=== PATIENT | male | born 1965 | race Caucasian/White ===

== ENCOUNTER 2016-11-21 15:14 | Inpatient (IN) | payer OTHER ==
[2016-11-21] VITALS (11 sets, daily range): BP systolic 82–99; BP diastolic 51–65; PULSE 72–84; RESP 12–24; TEMP 97.3–97.9; O2SAT 99–100
[~2016-11-21] VITALS: Ht 172.7 cm; Wt 73.9 kg
--- NOTE | 2016-11-21 16:32 | RADRPT ---
EXAM DATE/TIME: 11/21/2016 15:45 [facility] COMPARISON: No previous studies available for comparison. INDICATIONS : Chest pain and shortness of breath. MEDICAL HISTORY : None. SURGICAL HISTORY : None. ENCOUNTER: Initial ACUITY: 1 day PAIN SCORE: 4/10 LOCATION: Left chest FINDINGS: The heart is normal in size. There chronic appearing interstitial changes within the pulmonary parenc hyma. The lungs are otherwise clear. The visualized bony structures are grossly intact. CONCLUSION: 1. Chronic appearing interstitial changes. No acute abnormality. Willie Shelley MD on November 21, 2016 at 16:30 Board Certified Radiologist. This report was verified electronically.
[2016-11-21] MEDS ORDERED: SODIUM CHLOR 0.9% 1000 ML INJ 1,000 ML IV ONE ×2 (17:00→22:45)
--- NOTE | 2016-11-21 17:16 | PD ---
HPI Chief Complaint: Chest Pain Time Seen by Provider: 16:55 Travel History International Travel<30 days: No Contact w/Intl Traveler<30days: No Traveled to known affect area: No History of Present Illness HPI 50-year-old male patient presents to the emergency department for evaluation of hypotension. Patient went to his doctor's appointment this morning for evaluation of his hiatal hernia that he would like to get repaired. During the routine vital signs taken at his physician's appointment it was noted that his blood pressure is extremely low in the 60s systolically. Patient was referred to the emergency department for evaluation. Patient has recently been treated for sepsis and pneumonia. When patient was treated for pneumonia he was admitted to the hospital and intensive care on a ventilator in July of this year. Patient states he is treated for hypertension and takes antihypertensives daily but cannot remember the name of the medications at this time. He did take his medications this morning. Patient has noticed that within the last week he has become lightheaded when standing too quickly. Patient states last week he had abdominal pain, nausea and vomiting. Patient is nauseated at this time but denies any vomiting. Patient states he intermittently gets cramping in his legs and his abdomen. Patient has COPD and is is on continuous oxygen at 2 L. Patient states he has a dry cough that worsens when he is laying down. PFSH Past Medical History Anxiety: Yes Depression: Yes Heart Rhythm Problems: Yes Cancer: Yes (SKIN CA) Cardiovascular Problems: Yes COPD: Yes Diminished Hearing: Yes Gastrointestinal Disorders: Yes (GASTROPARESIS) GERD: Yes Hypertension: Yes Medical other: Yes Respiratory: Yes (COPD) Pneumonia: Yes Past Surgical History Tonsillectomy: Yes Social History Alcohol Use: No Tobacco Use: No Substance Use: No Allergies-Medications (Allergen,Severity, Reaction): Coded Allergies: No Known Allergies (Unverified , 11/21/16) Review of Systems Except as stated in HPI: all other systems reviewed are Neg Physical Exam Narrative GENERAL: Well-nourished and well developed 50-year-old male in no acute distress. Alert and oriented 3. SKIN: Focused skin assessment warm/dry. HEAD: Atraumatic. Normocephalic. EYES: Pupils equal and round. No scleral icterus. No injection or drainage. ENT: No nasal bleeding or discharge. Mucous membranes pink and moist. NECK: Trachea midline. No JVD. CARDIOVASCULAR: Regular rate and rhythm. No murmur appreciated. RESPIRATORY: No accessory muscle use. Breath sounds equal bilaterally. Course in the bases bilaterally. GASTROINTESTINAL: Abdomen round, soft, tender. Hepatic and splenic margins not palpable. MUSCULOSKELETAL: No obvious deformities. No clubbing. No cyanosis. No edema. NEUROLOGICAL: Awake and alert. No obvious cranial nerve deficits. Motor grossly within normal limits. Normal speech. PSYCHIATRIC: Appropriate mood and affect; insight and judgment normal. Data Data Last Documented VS Vital Signs Date Time Temp Pulse Resp B/P (MAP) Pulse Ox O2 Delivery O2 Flow Rate FiO2 11/21/16 20:00 79 18 89/56 (67) Nasal Cannula 2.00 11/21/16 19:30 100 11/21/16 15:18 97.9 Orders Orders Electrocardiogram (11/21/16 15:33) Complete Blood Count With Diff (11/21/16 15:33) Basic Metabolic Panel (Bmp) (11/21/16 15:33) Ckmb (Isoenzyme) Profile (11/21/16 15:33) Troponin I (11/21/16 15:33) Iv Access Insert/Monitor (11/21/16 15:33) Ecg Monitoring (11/21/16 15:33) Oxygen Administration (11/21/16 15:33) Oximetry (11/21/16 15:33) Chest, Pa & Lat (11/21/16 15:33) Hepatic Functional Panel (11/21/16 16:55) Lipase (11/21/16 16:55) Sodium Chlor 0.9% 1000 Ml Inj (Ns 1000 M (11/21/16 17:00) Lactic Acid (11/21/16 16:55) Ct Abd/Pel W/O Iv Contrast (11/21/16 18:06) Blood Culture (11/21/16 18:16) Piperacil-Tazo 2.25 Gm Premix (Zosyn 2.2 (11/21/16 18:30) Lactic Acid (11/21/16 20:04) Acetaminophen (Tylenol) (11/21/16 20:15) Admit Order (Ed Use Only) (11/21/16 20:50) Labs Laboratory Tests Test 11/21/16 16:25 11/21/16 17:25 11/21/16 20:18 White Blood Count 16.3 TH/MM3 Red Blood Count 5.61 MIL/MM3 Hemoglobin 13.0 GM/DL Hematocrit 42.9 % Mean Corpuscular Volume 76.5 FL Mean Corpuscular Hemoglobin 23.1 PG Mean Corpuscular Hemoglobin Concent 30.3 % Red Cell Distribution Width 19.6 % Platelet Count 324 TH/MM3 Mean Platelet Volume 10.7 FL Neutrophils (%) (Auto) 89.4 % Lymphocytes (%) (Auto) 7.5 % Monocytes (%) (Auto) 2.8 % Eosinophils (%) (Auto) 0.1 % Basophils (%) (Auto) 0.2 % Neutrophils # (Auto) 14.6 TH/MM3 Lymphocytes # (Auto) 1.2 TH/MM3 Monocytes # (Auto) 0.5 TH/MM3 Eosinophils # (Auto) 0.0 TH/MM3 Basophils # (Auto) 0.0 TH/MM3 CBC Comment DIFF FINAL Differential Comment Blood Urea Nitrogen 23 MG/DL Creatinine 2.14 MG/DL Random Glucose 102 MG/DL Calcium Level 9.2 MG/DL Sodium Level 137 MEQ/L Potassium Level 3.5 MEQ/L Chloride Level 98 MEQ/L Carbon Dioxide Level 29.1 MEQ/L Anion Gap 10 MEQ/L Estimat Glomerular Filtration Rate 33 ML/MIN Total Creatine Kinase 27 U/L Troponin I LESS THAN 0.02 NG/ML Lactic Acid Level 2.9 mmol/L Total Bilirubin 1.3 MG/DL Direct Bilirubin 0.2 MG/DL Indirect Bilirubin 1.1 MG/DL Aspartate Amino Transf (AST/SGOT) 11 U/L Alanine Aminotransferase (ALT/SGPT) 19 U/L Alkaline Phosphatase 60 U/L Total Protein 7.4 GM/DL Albumin 3.8 GM/DL Lipase 361 U/L [facility] Medical Decision Making Medical Screen Exam Complete: Yes Emergency Medical Condition: Yes Medical Record Reviewed: Yes Interpretation(s) Hypotensive, afebrile, no tachycardia Differential Diagnosis Differential diagnoses include but are not limited to sepsis, dehydration, hypotension, electrolyte abnormality Narrative Course 50-year-old male patient presents emergency department for evaluation of hypotension that was found during routine vital signs at his physician's office. Patient is treated for hypertension and has taken his hypertensive medications today. Patient states he is nauseous currently; last week he had abdominal pain, nausea or vomiting. Patient was recently treated for sepsis and pneumonia. Patient was treated for pneumonia he was admitted to the hospital with a ventilator. Patient states he had a fever a couple days ago at home. Patient states he has been feeling dizzy for approximately one week when he stands up. EKG, CBC, BMP, troponin, CK, hepatic function panel, lipase, lactic acid, chest x-ray, CT of abdomen with contrast ordered and pending. Patient is unsure of his current medication regimen. Patient believes he is on a water pill and being treated for hypertension but he does not know his current medications. Multiple attempts have been made to obtain his current records from [facility] but we have not gotten any records yet. EKG shows sinus rhythm with short AK interval heart rate 77 CBC shows leukocytosis at 16.3 BMP shows no acute abnormalities TROP less than 0.02 CK is 27 HEPATIC FUNCTION PANEL elevated total bilirubin at 1.3 LIPASE within normal limits at 361 LACTIC ACID elevated at 2.9 CXR shows chronic-appearing interstitial changes. No acute abnormality. CT OF ABD shows streaky infiltrate of both lung bases, mostly the left lower lung and indeterminate cystic structure within the spleen Patient will be treated empirically for sepsis based on abdominal source due to abdominal tenderness upon palpation with Zosyn 2.25 IV. Patient will be admitted to the hospital for further evaluation. Based on patient's symptoms, clinical appearance, vital sign review, lab results , imaging results it is clinically necessary to keep the patient in the hospital to further evaluate and treat his underlying condition. Patient will be admitted. [facility] paged for admission. Dr. Puga accepted admission. Sepsis Criteria Severe Sepsis (+one): Hypotension, Lactate >2 Diagnosis Primary Impression: Sepsis Qualified Codes: A41.9 - Sepsis, unspecified organism Additional Impression: Hypotension Qualified Codes: I95.9 - Hypotension, unspecified Admitting Information Admitting Physician Requests: Admit Umm Watson Nov 21, 2016 17:16
[2016-11-21 17:50] LABS: AUTOMATED NEUTROPHIL # 14.6 TH/MM3 (1.8-7.7); BASOPHIL % 0.2 % (0.0-2.0); EOSINOPHIL % 0.1 % (0.0-4.0); HEMATOCRIT 42.9 % (39.0-51.0); HEMO FLAGS DIFF FINAL; LYMPH % 7.5 % (9.0-44.0); LYMPHOCYTE # 1.2 TH/MM3 (1.0-4.8); MEAN CELL VOLUME 76.5 FL (80.0-100.0); MEAN CORPUSCULAR HEMOGLOBIN 23.1 PG (27.0-34.0); MEAN CORPUSCULAR HGB CONC 30.3 % (32.0-36.0); MONO % 2.8 % (0.0-8.0); NEUT % 89.4 % (16.0-70.0); PLATELET COUNT 324 TH/MM3 (150-450); RED BLOOD COUNT 5.61 MIL/MM3 (4.50-5.90); RED CELL DISTRIBUTION WIDTH 19.6 % (11.6-17.2); WHITE BLOOD COUNT 16.3 TH/MM3 (4.0-11.0)
[2016-11-21 18:00] LABS: ANION GAP 10 MEQ/L (5-15); BICARBONATE 29.1 MEQ/L (21.0-32.0); BLOOD UREA NITROGEN 23 MG/DL (7-18); CHLORIDE 98 MEQ/L (98-107); GLOMERULAR FILTRATION RATE 33 ML/MIN (>89); POTASSIUM 3.5 MEQ/L (3.5-5.1); SODIUM (NA) 137 MEQ/L (136-145)
[2016-11-21 18:03] LABS: INDIRECT BILIRUBIN 1.1 MG/DL (0.0-0.8); TOTAL BILIRUBIN ADULT 1.3 MG/DL (0.2-1.0)
[2016-11-21 18:10] LABS: CREATINE KINASE 27 U/L (39-308)
[2016-11-21] MEDS ORDERED: PIPERACIL-TAZO 2.25 GM PREMIX 50 ML IV ONE (18:30)
--- NOTE | 2016-11-21 19:10 | RADRPT ---
EXAM DATE/TIME: 11/21/2016 18:34 [facility] COMPARISON: No previous studies available for comparison. INDICATIONS : Low blood count intermittent chest pain. ORAL CONTRAST: No oral contrast ingested. RADIATION DOSE: 6.38 CTDIvol (mGy) MEDICAL HISTORY : Cardiovascular disease. Hypertension. Chronic obstructive pulmonary disease. SURGICAL HISTORY : None. ENCOUNTER: Initial ACUITY: 1 day PAIN SCALE: 6/10 LOCATION: Abdomen TECHNIQUE: Volumetric scanning of the abdomen and pelvis was performed. Using automated exposure control and ad justment of the mA and/or kV according to patient size, radiation dose was kept as low as reasonably achievable to obtain optimal diagnostic quality images. DICOM format image data is available electro nically for review and comparison. FINDINGS: LOWER LUNGS: Mild streaky infiltrate seen in the visualized lower lobes, left worse than right. There is biventric ular enlargement of the heart. A small hiatal hernia is present. LIVER: Homogeneous density without lesion. There is no dilation of the biliary tree. No calcified gallston es. SPLEEN: 5.6 cm cystic structure seen in the upper, medial spleen. PANCREAS: Within normal limits. KIDNEYS: Normal in size and shape. There is no mass, stone, or hydronephrosis. ADRENAL GLANDS: Within normal limits. VASCULAR: There is no aortic aneurysm. BOWEL/MESENTERY: The stomach, small bowel, and colon demonstrate no acute abnormality. There is no free intraperitone al air or fluid. ABDOMINAL WALL: Within normal limits. RETROPERITONEUM: There is no lymphadenopathy. BLADDER: No wall thickening or mass. REPRODUCTIVE: Within normal limits. INGUINAL: There is no lymphadenopathy or hernia. MUSCULOSKELETAL: No acute bony abnormality demonstrated. Chronic appearing ankylosis and subchondral sclerosis seen of both sacroiliac joints typical of chronic sacroiliitis. CONCLUSION: 1. Streaky infiltrate of both lung bases, mostly the left lower lobe. 2. Indeterminate cystic structure within the spleen. Ben Connor MD on November 21, 2016 at 19:06 Board Certified Radiologist. This report was verified electronically.
[2016-11-21] MEDS ORDERED: ACETAMINOPHEN 325 MG TAB PO ONE (20:15)
--- NOTE | 2016-11-21 21:39 | HHI.HP ---
HPI Service [facility] Primary Care Physician Emilia Frankel D.O. Admission Diagnosis sepsis, hypotension Chief Complaint: Low blood pressure, cough, sent directly from surgeon's office due to symptomatic low blood pressure Travel History International Travel<30 Days: No Contact w/Intl Traveler <30 Da: No Traveled to Known Affected Are: No Sepsis Criteria SIRS Criteria (2 or more): RR > 20 or PaCO2 < 32, WBC > 52312, < 4000 or > 10 % bands Sepsis Criteria (SIRS+source): Infect source susp/known Severe Sepsis (+one): Hypotension, Lactate >2 Criteria Outcome: Meets severe sepsis criteria History of Present Illness 50-year-old male patient with history of gastroparesis, ankylosing spondylitis and recurrent pneumonia reportedly due to aspiration presents to the emergency department for evaluation of hypotension. Patient went to his general surgeon' s appointment this morning for evaluation of his hiatal hernia and reflux that he would like to get repaired. During the routine vital signs taken at his physician's appointment it was noted that his blood pressure is extremely low in the 60s/40s. This was confirmed on several measurements and patient was symptomatic with orthostatic lightheadedness. Patient was referred to the emergency department for evaluation. Patient has recently been treated for sepsis and pneumonia. When patient was treated for pneumonia he was admitted to a neighboring hospital and intensive care unit on a ventilator in July of this year. Patient states he is treated for hypertension and takes antihypertensives daily. He did take his medications this morning. Patient has noticed that within the last week he has become lightheaded when standing too quickly. Patient states last week he had abdominal pain, nausea and vomiting. Patient is nauseated at this time but denies any vomiting in the last few days. Patient states he intermittently gets cramping in his legs and his abdomen. Patient has COPD. Patient states he has a dry cough that worsens when he is laying down. He has been given 1 L of IV fluids thus far his blood pressure now in the 80s over 60s. He is actually eating in the bed when I come in the room to examine him. He states that he has been increasingly weak over the last few days and has felt tired and lightheaded without much energy. He said a sharp pain in the left lower chest at times says it is usually associated with him trying to take a deep breath. He has had abdominal pain and has been coughing up more phlegm the last few days. He reports he said approximately 10 episodes of pneumonia in the last 15 months which he ascribes to recurrent aspiration. He has been to [facility] for evaluation regarding his gastroparesis and also has seen infectious disease regarding his recurrent pneumonias locally and at tertiary care center. Complicating his case is the fact that he has underlying ankylosing spondylitis as well as Crohn's disease and is on medications that suppress his immune system. Review of Systems Constitutional: COMPLAINS OF: Diaphoretic episodes, Fatigue, Weight loss, Chills, Dizziness, Change in appetite Endocrine: DENIES: Heat/cold intolerance, Polydipsia, Polyuria, Polyphagia Eyes: DENIES: Blurred vision, Diplopia, Eye inflammation, Eye pain, Vision loss , Photosensitivity, Double Vision Ears, nose, mouth, throat: DENIES: Tinnitus, Hearing loss, Vertigo, Nasal discharge, Oral lesions, Throat pain, Hoarseness, Ear Pain, Running Nose, Epistaxis, Sinus Pain, Toothache, Odynophagia Respiratory: COMPLAINS OF: Cough, Sputum production, Shortness of breath, DENIES: Apneas, Snoring, Wheezing, Hemoptysis Cardiovascular: COMPLAINS OF: Chest pain, Dyspnea on Exertion, DENIES: Palpitations, Syncope, PND, Lower Extremity Edema, Orthopnea, Claudication Gastrointestinal: COMPLAINS OF: Abdominal pain, GERD, Nausea, Reflux, DENIES: Black stools, Bloody stools, BRB per rectum, Constipation, Diarrhea, Vomiting, Difficulty Swallowing, Anorexia, See HPI Musculoskeletal: COMPLAINS OF: Joint pain, Back pain Integumentary: DENIES: Abnormal pigmentation, Nail changes, Pruritus, Rash Hematologic/lymphatic: DENIES: Bruising, Lymphadenopathy Immunologic/allergic: DENIES: Eczema, Urticaria Neurologic: COMPLAINS OF: Poor Balance, DENIES: Abnormal gait, Headache, Localized weakness, Paresthesias, Seizures, Speech Problems, Tremor Psychiatric: COMPLAINS OF: Anxiety Past Family Social History Past Medical History Ankylosing spondylitis Ochoa's esophagus COPD with recurrent bronchitis Recurrent pneumonia Crohn's disease Gastroparesis GERD Gram-negative hay sepsis in July of this year Hiatal hernia Major depressive disorder Anxiety Attention deficit hyperactivity disorder Past Surgical History Left knee surgery in the distant past Basal cell carcinoma removed from skin EGD with biopsy Reported Medications Meds verified with patient to the best of his recollection and per review of EMR list of medications. Abilify 2 mg a day Adderall XR 20 mg daily Albuterol sulfate 1 nebulizer dose 3 times a day Ipratropium bromide 1 nebulizer 3 times a day Alprazolam 1 mg daily at bedtime Amlodipine 5 mg daily Duloxetine 60 mg a day Omeprazole 20 mg a day Erythromycin stearate 250 mg 1 tablet twice daily Iron sulfate 325 mg a day Folic acid 1 mg daily Furosemide 20 mg daily Lortab 7.5/325 one 3 times a day as needed for pain Potassium 20 mEq 1 daily Losartan 100 mg daily Meloxicam 15 mg daily [place] methotrexate 2.5 mg 8 tablets one day per week Metoprolol 25 mg twice daily Ondansetron 8 mg 3 times daily as needed for nausea or vomiting Singulair 10 mg daily Supplemental oxygen at 2 L/m per nasal cannula 16/09 Allergies: Coded Allergies: No Known Allergies (Unverified , 11/21/16) Family History Father of skin cancer, sounds like squamous cell cancer with metastases Mother has diabetes, history of TIA and history of coronary artery disease Social History Patient lives with his and his mother He has not smoked tobacco since 2008 prior to that smoked 1 pack per day for approximately 20 years Denies illicit drug or alcohol use Currently seeking disability secondary to severe pain due to ankylosing spondylitis, previously worked as a field machinist Originally from [facility]. Physical Exam Vital Signs Vital Signs Date Time Temp Pulse Resp B/P (MAP) Pulse Ox O2 Delivery O2 Flow Rate FiO2 11/21/16 21:00 80 18 95/57 (70) 11/21/16 20:00 79 18 89/56 (67) Nasal Cannula 2.00 11/21/16 19:30 72 16 86/51 (63) 100 Nasal Cannula 1.00 11/21/16 18:00 76 18 99/59 (72) 100 Nasal Cannula 2.00 11/21/16 17:45 84 20 84/52 (63) 100 Nasal Cannula 2.00 11/21/16 17:42 82 24 88/53 (65) 86 22 90/51 (64) 87 24 84/52 (63) 11/21/16 17:30 81 22 93/65 (74) 99 Nasal Cannula 2.00 11/21/16 16:48 80 12 82/52 (62) 100 Nasal Cannula 2.00 11/21/16 16:47 100 Nasal Cannula 2.00 11/21/16 16:47 Nasal Cannula 2.00 11/21/16 15:18 97.9 84 18 87/52 (64) 100 Nasal Cannula 2.00 Physical Exam GENERAL: This is a well-nourished, well-developed patient, in no apparent distress. Alert and oriented. Cooperative with exam. SKIN: Cool and dry. HEAD: Atraumatic. Normocephalic. No temporal or scalp tenderness. EYES: Pupils equal round and reactive. Extraocular motions intact. No scleral icterus. No injection or drainage. ENT: Nose without bleeding, purulent drainage or septal hematoma. Airway patent. NECK: Trachea midline. No JVD or lymphadenopathy. Supple, nontender, no meningeal signs. CARDIOVASCULAR: Regular rate and rhythm without murmurs, gallops, or rubs. Rate in the 80s on my exam. RESPIRATORY: Diminished breath sounds in the bases with some coarse bronchovesicular breath sounds. Fair air movement. No wheezes. GASTROINTESTINAL: Abdomen soft, mildly distended and mild global tenderness to palpation. No hepato-splenomegaly, or palpable masses. No guarding. Bowel sounds slightly hypoactive. MUSCULOSKELETAL: Extremities without clubbing, cyanosis, or edema. No calf tenderness. Patient had tenderness to palpation along the mid to lower spine. NEUROLOGICAL: Awake and alert. Cranial nerves II through XII intact. Motor and sensory grossly within normal limits. Five out of 5 muscle strength in all muscle groups. Normal speech. Laboratory Laboratory Tests Test 11/21/16 16:25 11/21/16 17:25 11/21/16 20:18 White Blood Count 16.3 Red Blood Count 5.61 Hemoglobin 13.0 Hematocrit 42.9 Mean Corpuscular Volume 76.5 Mean Corpuscular Hemoglobin 23.1 Mean Corpuscular Hemoglobin Concent 30.3 Red Cell Distribution Width 19.6 Platelet Count 324 Mean Platelet Volume 10.7 Neutrophils (%) (Auto) 89.4 Lymphocytes (%) (Auto) 7.5 Monocytes (%) (Auto) 2.8 Eosinophils (%) (Auto) 0.1 Basophils (%) (Auto) 0.2 Neutrophils # (Auto) 14.6 Lymphocytes # (Auto) 1.2 Monocytes # (Auto) 0.5 Eosinophils # (Auto) 0.0 Basophils # (Auto) 0.0 CBC Comment DIFF FINAL Differential Comment Blood Urea Nitrogen 23 Creatinine 2.14 Random Glucose 102 Calcium Level 9.2 Sodium Level 137 Potassium Level 3.5 Chloride Level 98 Carbon Dioxide Level 29.1 Anion Gap 10 Estimat Glomerular Filtration Rate 33 Total Creatine Kinase 27 Troponin I LESS THAN 0.02 Lactic Acid Level 2.9 2.2 Total Bilirubin 1.3 Direct Bilirubin 0.2 Indirect Bilirubin 1.1 Aspartate Amino Transf (AST/SGOT) 11 Alanine Aminotransferase (ALT/SGPT) 19 Alkaline Phosphatase 60 Total Protein 7.4 Albumin 3.8 Lipase 361 Date/Time Source Procedure Growth Status 11/21/16 19:06 Blood Peripheral Aerobic Blood Culture Pending Received 11/21/16 19:06 Blood Peripheral Anaerobic Blood Culture Pending Received Result Diagram: 11/21/16 1625 11/21/16 1625 Imaging Last 72 hours Impressions Abdomen/Pelvis CT 11/21/16 1806 Signed Impressions: Service Date/Time: October 18:34 - CONCLUSION: 1. Streaky infiltrate of both lung bases, mostly the left lower lobe. 2. Indeterminate cystic structure within the spleen. Ben Connor MD Chest X-Ray 11/21/16 1533 Signed Impressions: Service Date/Time: October 15:45 - CONCLUSION: 1. Chronic appearing interstitial changes. No acute abnormality. Willie Shelley MD Septic Shock Reassessment Heart: Regular rate and rhythm Lungs: Course, Diminished Skin: Warm, Dry Peripheral Pulses: Bounding Right Popliteal Bounding Left Popliteal Caprini VTE Risk Assessment Caprini VTE Risk Assessment: Mod/High Risk (score >= 2) Caprini Risk Assessment Model Point Value = 1 Point Value = 2 Point Value = 3 Point Value = 5 Age 41-60 Minor surgery BMI > 25 kg/m2 Swollen legs Varicose veins or History of unexplained or recurrent spontaneous Oral contraceptives or hormone replacement Sepsis (< 1 month) Serious lung disease, including pneumonia (< 1 month) Abnormal pulmonary function Acute myocardial infarction Congestive heart failure (< 1 month) History of inflammatory bowel disease Medical patient at bed rest Age 61-74 Arthroscopic surgery Major open surgery (> 45 min) Laparoscopic surgery (> 45 min) Malignancy Confined to bed (> 72 hours) Immobilizing plaster cast Central venous access Age >= 75 History of VTE Family history of VTE Factor V Leiden Prothrombin [id number] Lupus anticoagulant Anticardiolipin antibodies Elevated serum homocysteine Heparin-induced thrombocytopenia Other congenital or acquired thrombophilia Stroke (< 1 month) Elective arthroplasty Hip, pelvis, or leg fracture Acute spinal cord injury (< 1 month) Prophylaxis Regimen Total Risk Factor Score Risk Level Prophylaxis Regimen 0-1 Low Early ambulation 2 Moderate Order ONE of the following: *Sequential Compression Device (SCD) *Heparin 5000 units SQ BID 3-4 Higher Order ONE of the following medications: *Heparin 5000 units SQ TID *Enoxaparin/Lovenox 40 mg SQ daily (WT < 150 kg, CrCl > 30 mL/min) *Enoxaparin/Lovenox 30 mg SQ daily (WT < 150 kg, CrCl > 10-29 mL/min) *Enoxaparin/Lovenox 30 mg SQ BID (WT < 150 kg, CrCl > 30 mL/min) AND/OR *Sequential Compression Device (SCD) 5 or more Highest Order ONE of the following medications: *Heparin 5000 units SQ TID (Preferred with Epidurals) *Enoxaparin/Lovenox 40 mg SQ daily (WT < 150 kg, CrCl > 30 mL/min) *Enoxaparin/Lovenox 30 mg SQ daily (WT < 150 kg, CrCl > 10-29 mL/min) *Enoxaparin/Lovenox 30 mg SQ BID (WT < 150 kg, CrCl > 30 mL/min) AND *Sequential Compression Device (SCD) Assessment and Plan Problem List: (1) Sepsis ICD Codes: A41.9 - Sepsis, unspecified organism Status: Acute Plan: Likely due to underlying pneumonia. Provide IV fluids and antibiotics. Monitor closely. Blood pressure seems to have responded favorably thus far. (2) Hypotension ICD Codes: I95.9 - Hypotension, unspecified Status: Acute Plan: Likely associated with sepsis as noted above. (3) Pneumonia ICD Codes: J18.9 - Pneumonia, unspecified organism Status: Acute Plan: Recurring problem. Possibly associated with recurrent aspiration. Patient was hospitalized in July with significant gram-negative hay sepsis requiring intubation and ventilatory support per his report. Provide IV fluids and IV antibiotics. Cultures are pending. (4) Acute kidney injury (nontraumatic) ICD Codes: N17.9 - Acute kidney failure, unspecified Status: Acute Plan: Possibly due to hypoperfusion injury. Provide IV fluids. Creatinine generally ones around 0.8 for him. Monitor end taken output. (5) Ankylosing spondylitis ICD Codes: M45.9 - Ankylosing spondylitis of unspecified sites in spine Status: Chronic Plan: Provide pain medication but we'll be cautious due to low blood pressures. (6) Gastroparesis ICD Codes: K31.84 - Gastroparesis Status: Chronic Plan: Continue medication. GI following as outpatient. If the gastroparesis and hiatal hernia are significantly contributing to the recurrent pneumonia, specialist may need to be involved during this hospital course in hopes of providing a more definitive therapy. Code Status Full Discussed Condition With Patient and ER provider. Physician Certification 2 Midnight Certification Type: Admission for Inpatient Services Order for Inpatient Services The services are ordered in accordance with Medicare regulations or non- Medicare payer requirements, as applicable. In the case of services not specified as inpatient-only, they are appropriately provided as inpatient services in accordance with the 2-midnight benchmark. Estimated LOS (days): 4 days is the estimated time the patient will need to remain in the hospital, assuming treatment plan goals are met and no additional complications. Post-Hospital Plan: Not yet determined Problem Qualifiers (1) Sepsis: Qualified Codes: A41.9 - Sepsis, unspecified organism (2) Hypotension: Qualified Codes: I95.9 - Hypotension, unspecified Kristopher Puga MD PhD Nov 21, 2016 21:39
[2016-11-21] MEDS ORDERED: SODIUM CHLOR 0.9% 1000 ML INJ 1,000 ML IV SCH (21:43)
[2016-11-21] MEDS ORDERED: ALPRAZolam 0.5 MG TAB PO PRN (21:45)
[2016-11-21] MEDS ORDERED: SODIUM CHLORIDE 0.9% FLUSH 10 ML FLUSH IVF PRN (21:45)
[2016-11-21] MEDS ORDERED: ONDANSETRON HCL 4 MG/2 ML VIAL IV PUSH PRN (21:45)
[2016-11-21] MEDS ORDERED: RESP: ALBUTEROL 1.25 MG/3 ML NEB (PRN) NEB (21:45)
[2016-11-21] MEDS: RESP: ALBUTEROL 2.5 MG/IPRATROPIUM 0.5 MG NEB (SCH) NEB (22:00)
[2016-11-21] MEDS ORDERED: ADDE20 PO (22:03)
[2016-11-21] MEDS ORDERED: GABA100C4 PO (22:03)
[2016-11-21] MEDS ORDERED: AMLO5TAB2 PO (22:03)
[2016-11-21] MEDS ORDERED: OMEP20TA PO (22:03)
[2016-11-21] MEDS ORDERED: MONT10TA4 PO (22:03)
[2016-11-21] MEDS ORDERED: FOLI800T PO (22:03)
[2016-11-21] MEDS ORDERED: POTA10TA2 PO (22:03)
[2016-11-21] MEDS ORDERED: MELO7.5T4 PO (22:03)
[2016-11-21] MEDS ORDERED: HYDR-3535 PO (22:03)
[2016-11-21] MEDS ORDERED: ALPR1TAB3 PO (22:03)
[2016-11-21] MEDS: predniSONE 20 MG TAB PO SCH (23:03)
[2016-11-21] MEDS: LEVOFLOXACIN 750 MG PREMIX INJ 150 ML IV SCH (23:03)
[2016-11-21] MEDS: POTASSIUM CHLORIDE INJ 10 MEQ in SODIUM CHLOR 0.9% 1000 ML INJ 1,000 ML IV SCH (23:03)
[2016-11-21] MEDS: ENOXAPARIN SODIUM 30 MG/0.3 ML SYRINGE SQ SCH (23:04)
[2016-11-21] MEDS: MORPHINE SULFATE 4 MG/ML INJ IV PUSH PRN (23:50)
[2016-11-22] VITALS (9 sets, daily range): BP systolic 104–129; BP diastolic 57–72; PULSE 73–111; RESP 16–20; TEMP 97.3–98.2; O2SAT 97–100
[2016-11-22] MEDS: PIPERACIL-TAZO 3.375 GM PREMIX 50 ML IV SCH ×4 (00:38→16:51)
[2016-11-22] MEDS: RESP: ALBUTEROL 2.5 MG/IPRATROPIUM 0.5 MG NEB (SCH) NEB ×3 (03:57→21:40)
[2016-11-22] MEDS: MORPHINE SULFATE 4 MG/ML INJ IV PUSH PRN ×5 (04:21→19:57)
[2016-11-22 07:50] LABS: AUTOMATED NEUTROPHIL # 10.7 TH/MM3 (1.8-7.7); BASOPHIL % 0.3 % (0.0-2.0); HEMATOCRIT 35.5 % (39.0-51.0); HEMO FLAGS DIFF FINAL; LYMPH % 6.6 % (9.0-44.0); LYMPHOCYTE # 0.8 TH/MM3 (1.0-4.8); MEAN CELL VOLUME 76.1 FL (80.0-100.0); MEAN CORPUSCULAR HEMOGLOBIN 23.2 PG (27.0-34.0); MEAN CORPUSCULAR HGB CONC 30.5 % (32.0-36.0); MONO % 2.5 % (0.0-8.0); NEUT % 90.6 % (16.0-70.0); PLATELET COUNT 209 TH/MM3 (150-450); RED BLOOD COUNT 4.67 MIL/MM3 (4.50-5.90); RED CELL DISTRIBUTION WIDTH 19.6 % (11.6-17.2); WHITE BLOOD COUNT 11.8 TH/MM3 (4.0-11.0)
[2016-11-22 08:41] LABS: ALKALINE PHOSPHATASE 49 U/L (45-117); ALT (GPT) 15 U/L (12-78); ANION GAP 5 MEQ/L (5-15); AST (GOT) 17 U/L (15-37); BICARBONATE 28.2 MEQ/L (21.0-32.0); BLOOD UREA NITROGEN 24 MG/DL (7-18); CHLORIDE 105 MEQ/L (98-107); GLOMERULAR FILTRATION RATE 42 ML/MIN (>89); POTASSIUM 4.6 MEQ/L (3.5-5.1); SODIUM (NA) 138 MEQ/L (136-145); TOTAL BILIRUBIN ADULT 0.6 MG/DL (0.2-1.0)
[2016-11-22] MEDS ORDERED: PANTOPRAZOLE SOD 40 MG DELAYED RELEASE TAB PO SCH (09:00)
[2016-11-22] MEDS: SODIUM CHLORIDE 0.9% FLUSH 10 ML FLUSH IVF SCH ×2 (09:00→19:56)
[2016-11-22] MEDS: predniSONE 20 MG TAB PO SCH (09:11)
--- NOTE | 2016-11-22 10:18 | EKG ---
Date Performed: 11/21/2016 Time Performed: 16:19:40 PTAGE: 50 years EKG: Sinus rhythm WITH SHORT HI INTERVAL MODERATE VOLTAGE CRITERIA FOR LVH, CONSIDER NORMAL VARIANT BORDERLINE ECG NO PREVIOUS TRACING DOCTOR: Fito Jain Interpretating Date/Time 11/22/2016 10:12:56
[2016-11-22] MEDS: POTASSIUM CHLORIDE INJ 10 MEQ in SODIUM CHLOR 0.9% 1000 ML INJ 1,000 ML IV SCH (11:38)
[2016-11-22] MEDS: DULoxetine HCl DR 60 MG CAP PO SCH (12:36)
[2016-11-22] MEDS: ARIPiprazole 2 MG TAB PO SCH (12:37)
--- NOTE | 2016-11-22 17:49 | HHI.PR ---
Subjective Remarks Patient reports breathing feels much better reports continued reflux/indigestion Objective Vitals Vital Signs Date Time Temp Pulse Resp B/P (MAP) Pulse Ox O2 Delivery O2 Flow Rate FiO2 11/22/16 09:12 98 Nasal Cannula 2.00 11/22/16 08:00 98.2 90 20 106/57 (73) 98 11/22/16 04:23 97.3 78 20 104/58 (73) 11/22/16 04:02 99 Nasal Cannula 2.00 11/22/16 00:33 73 11/22/16 00:20 Nasal Cannula 2.00 11/21/16 23:47 11/21/16 23:37 97.3 81 18 99/59 (72) 100 11/21/16 21:00 80 18 95/57 (70) 11/21/16 20:00 79 18 89/56 (67) Nasal Cannula 2.00 11/21/16 19:30 72 16 86/51 (63) 100 Nasal Cannula 1.00 11/21/16 18:00 76 18 99/59 (72) 100 Nasal Cannula 2.00 11/21/16 17:45 84 20 84/52 (63) 100 Nasal Cannula 2.00 11/21/16 17:42 82 24 88/53 (65) 86 22 90/51 (64) 87 24 84/52 (63) Result Diagram: 11/22/1673211/22/16732 Other Results Laboratory Tests Test 11/21/16 16:25 11/21/16 17:25 11/21/16 20:18 11/22/16 07:33 White Blood Count 16.3 TH/MM3 11.8 TH/MM3 Red Blood Count 5.61 MIL/MM3 4.67 MIL/MM3 Hemoglobin 13.0 GM/DL 10.8 GM/DL Hematocrit 42.9 % 35.5 % Mean Corpuscular Volume 76.5 FL 76.1 FL Mean Corpuscular Hemoglobin 23.1 PG 23.2 PG Mean Corpuscular Hemoglobin Concent 30.3 % 30.5 % Red Cell Distribution Width 19.6 % 19.6 % Platelet Count 324 TH/MM3 209 TH/MM3 Mean Platelet Volume 10.7 FL 10.3 FL Neutrophils (%) (Auto) 89.4 % 90.6 % Lymphocytes (%) (Auto) 7.5 % 6.6 % Monocytes (%) (Auto) 2.8 % 2.5 % Eosinophils (%) (Auto) 0.1 % 0.0 % Basophils (%) (Auto) 0.2 % 0.3 % Neutrophils # (Auto) 14.6 TH/MM3 10.7 TH/MM3 Lymphocytes # (Auto) 1.2 TH/MM3 0.8 TH/MM3 Monocytes # (Auto) 0.5 TH/MM3 0.3 TH/MM3 Eosinophils # (Auto) 0.0 TH/MM3 0.0 TH/MM3 Basophils # (Auto) 0.0 TH/MM3 0.0 TH/MM3 CBC Comment DIFF FINAL DIFF FINAL Differential Comment Blood Urea Nitrogen 23 MG/DL 24 MG/DL Creatinine 2.14 MG/DL 1.74 MG/DL Random Glucose 102 MG/DL 129 MG/DL Calcium Level 9.2 MG/DL 8.4 MG/DL Sodium Level 137 MEQ/L 138 MEQ/L Potassium Level 3.5 MEQ/L 4.6 MEQ/L Chloride Level 98 MEQ/L 105 MEQ/L Carbon Dioxide Level 29.1 MEQ/L 28.2 MEQ/L Anion Gap 10 MEQ/L 5 MEQ/L Estimat Glomerular Filtration Rate 33 ML/MIN 42 ML/MIN Total Creatine Kinase 27 U/L Troponin I LESS THAN 0.02 NG/ML Lactic Acid Level 2.9 mmol/L 2.2 mmol/L 1.7 mmol/L Total Bilirubin 1.3 MG/DL 0.6 MG/DL Direct Bilirubin 0.2 MG/DL Indirect Bilirubin 1.1 MG/DL Aspartate Amino Transf (AST/SGOT) 11 U/L 17 U/L Alanine Aminotransferase (ALT/SGPT) 19 U/L 15 U/L Alkaline Phosphatase 60 U/L 49 U/L Total Protein 7.4 GM/DL 6.2 GM/DL Albumin 3.8 GM/DL 3.0 GM/DL Lipase 361 U/L Imaging Last 72 hours Impressions Abdomen/Pelvis CT 11/21/16 1806 Signed Impressions: Service Date/Time: October 18:34 - CONCLUSION: 1. Streaky infiltrate of both lung bases, mostly the left lower lobe. 2. Indeterminate cystic structure within the spleen. Ben Connor MD Chest X-Ray 11/21/16 1533 Signed Impressions: Service Date/Time: October 15:45 - CONCLUSION: 1. Chronic appearing interstitial changes. No acute abnormality. Willie Shelley MD Objective Remarks GENERAL: This is a well-nourished, well-developed patient, in no apparent distress. Alert and oriented. Cooperative with exam. CARDIOVASCULAR: Regular rate and rhythm without murmurs, gallops, or rubs. RESPIRATORY: Clear through out GASTROINTESTINAL: Abdomen soft, mildly distended and mild global tenderness to palpation. No hepato-splenomegaly, or palpable masses. No guarding. Bowel sounds slightly hypoactive. MUSCULOSKELETAL: Extremities without clubbing, cyanosis, or edema. No calf tenderness. Patient had tenderness to palpation along the mid to lower spine. NEUROLOGICAL: Awake and alert. No focal deficits noted. Motor and sensory grossly within normal limits. Five out of 5 muscle strength in all muscle groups. Normal speech. A/P Problem List: (1) Sepsis ICD Codes: A41.9 - Sepsis, unspecified organism Status: Acute Plan: Sepsis Likely due to underlying pneumonia Continue IV fluids Continue Zosyn and Levaquin IV Monitor closely. Blood pressure seems to be responding Blood Cultures no growth x 1 day Hypotension- improving Likely associated with sepsis as noted above. Pneumonia Recurring problem. Possibly associated with recurrent aspiration. Patient was hospitalized in July with significant gram-negative hay sepsis requiring intubation and ventilatory support per his report. Acute kidney injury (nontraumatic)- creatinine 2.14 on admission, 1.74 (11/22) Possibly due to hypoperfusion injury. Continue to provide IV fluids. Baseline creatinine generally recheck in AM Ankylosing spondylitis Provide pain medication but we'll be cautious due to low blood pressures. Gastroparesis Continue medication. GI following as outpatient. If the gastroparesis and hiatal hernia are significantly contributing to the recurrent pneumonia, specialist may need to be involved during this hospital course in hopes of providing a more definitive therapy. DVT prophylaxis with Lovenox 30mg SQ daily (2) Hypotension ICD Codes: I95.9 - Hypotension, unspecified Status: Acute Plan: see above (3) Pneumonia ICD Codes: J18.9 - Pneumonia, unspecified organism Status: Acute Plan: see above (4) Acute kidney injury (nontraumatic) ICD Codes: N17.9 - Acute kidney failure, unspecified Status: Acute Plan: see above (5) Ankylosing spondylitis ICD Codes: M45.9 - Ankylosing spondylitis of unspecified sites in spine Status: Chronic Plan: see above (6) Gastroparesis ICD Codes: K31.84 - Gastroparesis Status: Chronic Plan: see above Assessment and Plan Patient examined. Assessment and plan formulated with Yumiko Barbosa PA-C. I agree with the above. Problem Qualifiers (1) Sepsis: Qualified Codes: A41.9 - Sepsis, unspecified organism (2) Hypotension: Qualified Codes: I95.9 - Hypotension, unspecified Yumiko Barbosa Nov 22, 2016 17:49 Som Goldberg DO Nov 25, 2016 00:16
[2016-11-22] MEDS: CALCIUM CARBONATE 500 MG CHEWABLE TAB CHEW PRN (19:56)
[2016-11-22] MEDS: PANTOPRAZOLE SOD 40 MG DELAYED RELEASE TAB PO SCH (19:56)
[2016-11-23] VITALS (8 sets, daily range): BP systolic 96–118; BP diastolic 61–68; PULSE 74–98; RESP 16–20; TEMP 97.7–98.7; O2SAT 94–100
[2016-11-23] MEDS: ENOXAPARIN SODIUM 30 MG/0.3 ML SYRINGE SQ SCH ×2 (01:29→21:21)
[2016-11-23] MEDS: PIPERACIL-TAZO 3.375 GM PREMIX 50 ML IV SCH ×5 (01:29→23:19)
[2016-11-23] MEDS: RESP: ALBUTEROL 2.5 MG/IPRATROPIUM 0.5 MG NEB (SCH) NEB ×3 (03:05→20:00)
[2016-11-23 06:14] LABS: AUTOMATED NEUTROPHIL # 9.8 TH/MM3 (1.8-7.7); BASOPHIL # 0.1 TH/MM3 (0-0.2); BASOPHIL % 0.4 % (0.0-2.0); HEMATOCRIT 33.9 % (39.0-51.0); HEMO FLAGS DIFF FINAL; LYMPH % 18.7 % (9.0-44.0); LYMPHOCYTE # 2.3 TH/MM3 (1.0-4.8); MEAN CELL VOLUME 75.4 FL (80.0-100.0); MEAN CORPUSCULAR HEMOGLOBIN 23.4 PG (27.0-34.0); MONO % 2.3 % (0.0-8.0); NEUT % 78.6 % (16.0-70.0); PLATELET COUNT 187 TH/MM3 (150-450); RED CELL DISTRIBUTION WIDTH 19.7 % (11.6-17.2); WHITE BLOOD COUNT 12.4 TH/MM3 (4.0-11.0)
[2016-11-23 06:49] LABS: BICARBONATE 30.1 MEQ/L (21.0-32.0); POTASSIUM 3.6 MEQ/L (3.5-5.1)
[2016-11-23] MEDS: MORPHINE SULFATE 4 MG/ML INJ IV PUSH PRN ×3 (06:51→13:33)
[2016-11-23] MEDS: predniSONE 20 MG TAB PO SCH (09:24)
[2016-11-23] MEDS: ARIPiprazole 2 MG TAB PO SCH (09:24)
[2016-11-23] MEDS: PANTOPRAZOLE SOD 40 MG DELAYED RELEASE TAB PO SCH ×2 (09:24→21:20)
[2016-11-23] MEDS: DULoxetine HCl DR 60 MG CAP PO SCH (09:24)
[2016-11-23] MEDS: SODIUM CHLORIDE 0.9% FLUSH 10 ML FLUSH IVF SCH ×2 (09:26→21:24)
[2016-11-23] MEDS ORDERED: INFLUENZA VIRUS VACCINE (QUADRIVALENT) 0.5 ML SYR IM ONE (10:00)
--- NOTE | 2016-11-23 13:24 | HHI.PR ---
Subjective Remarks Pt with NO new complaints. Pt denies SOB or cough. Pt's reflux symptoms are improved from yesterday. Objective Vitals Vital Signs Date Time Temp Pulse Resp B/P (MAP) Pulse Ox O2 Delivery O2 Flow Rate FiO2 11/23/16 12:00 97.7 94 20 110/65 (80) 97 11/23/16 10:28 96 21 11/23/16 08:00 96 Room Air 11/23/16 08:00 98.1 76 20 106/67 (80) 96 11/23/16 04:00 98.2 89 16 106/66 (79) 95 11/23/16 00:00 97.8 82 16 118/68 (85) 100 11/22/16 21:40 97 11/22/16 20:08 Room Air 11/22/16 20:00 96 11/22/16 20:00 97.4 85 18 129/72 (91) 97 11/22/16 16:00 98.1 111 20 114/64 (81) 100 11/23/16 11/23/16 11/24/16 15:00 23:00 07:00 Intake Total 50 ml Balance 50 ml IV Total 50 ml Result Diagram: 11/23/16 0539 11/23/16 0539 Imaging Last 72 hours Impressions Abdomen/Pelvis CT 11/21/16 1806 Signed Impressions: Service Date/Time: October 18:34 - CONCLUSION: 1. Streaky infiltrate of both lung bases, mostly the left lower lobe. 2. Indeterminate cystic structure within the spleen. Ben Connor MD Chest X-Ray 11/21/16 1533 Signed Impressions: Service Date/Time: October 15:45 - CONCLUSION: 1. Chronic appearing interstitial changes. No acute abnormality. Willie Shelley MD Objective Remarks GENERAL: This is a well-nourished, well-developed patient, in no apparent distress. Alert and oriented. Cooperative with exam. CARDIOVASCULAR: Regular rate and rhythm without murmurs, gallops, or rubs. RESPIRATORY: Clear through out GASTROINTESTINAL: Abdomen soft, mildly distended and mild global tenderness to palpation. No hepato-splenomegaly, or palpable masses. No guarding. Bowel sounds slightly hypoactive. MUSCULOSKELETAL: Extremities without clubbing, cyanosis, or edema. No calf tenderness. Patient had tenderness to palpation along the mid to lower spine. NEUROLOGICAL: Awake and alert. No focal deficits noted. Motor and sensory grossly within normal limits. Five out of 5 muscle strength in all muscle groups. Normal speech. A/P Problem List: (1) Sepsis ICD Codes: A41.9 - Sepsis, unspecified organism Status: Acute Plan: Sepsis - due to underlying pneumonia - Continue IV fluids thru tomorrow AM - Zosyn (11/21 - present) - Levaquin (11/21 - present) - blood pressure reading improved from admission - Blood Cx (11/21) --> NGTD - CXR (11/21) --> chronic interstitial changes - CT abd/pelvis (11/21) --> bibasilar infiltrate, left worse than right - DVT prophylaxis - supportive care - anticipate discharge in 2-3 days Monitor closely. Blood pressure seems to be responding Blood Cultures no growth x 1 day Hypotension- improving Likely associated with sepsis as noted above. Pneumonia Recurring problem. Possibly associated with recurrent aspiration. Patient was hospitalized in July with significant gram-negative hay sepsis requiring intubation and ventilatory support per his report. Acute kidney injury (nontraumatic)- creatinine 2.14 on admission, 1.74 (11/22) Possibly due to hypoperfusion injury. Continue to provide IV fluids. Baseline creatinine generally recheck in AM Ankylosing spondylitis Provide pain medication but we'll be cautious due to low blood pressures. Gastroparesis Continue medication. GI following as outpatient. If the gastroparesis and hiatal hernia are significantly contributing to the recurrent pneumonia, specialist may need to be involved during this hospital course in hopes of providing a more definitive therapy. DVT prophylaxis with Lovenox 30mg SQ daily (2) Hypotension ICD Codes: I95.9 - Hypotension, unspecified Status: Acute Plan: - resolved, see above (3) Pneumonia ICD Codes: J18.9 - Pneumonia, unspecified organism Status: Acute Plan: - see above (4) Acute kidney injury (nontraumatic) ICD Codes: N17.9 - Acute kidney failure, unspecified Status: Acute Plan: - resolved with IV hydration (5) Ankylosing spondylitis ICD Codes: M45.9 - Ankylosing spondylitis of unspecified sites in spine Status: Chronic Plan: see above (6) Gastroparesis ICD Codes: K31.84 - Gastroparesis Status: Chronic Plan: see above (7) GERD (gastroesophageal reflux disease) ICD Codes: K21.9 - Gastro-esophageal reflux disease without esophagitis Plan: - increased protonix to BID - tums prn - pt considering w/u with General Surgery for possible fundoplication Problem Qualifiers (1) Sepsis: Qualified Codes: A41.9 - Sepsis, unspecified organism (2) Hypotension: Qualified Codes: I95.9 - Hypotension, unspecified Som Goldberg DO Nov 23, 2016 13:24
[2016-11-23] MEDS ORDERED: ACETAMINOPHEN/HYDROcodone 325 MG/5 MG TAB PO PRN (13:45)
[2016-11-23] MEDS: HYDROmorphone HCL PF 1 MG/ML VIAL IV PUSH PRN ×2 (17:12→23:17)
[2016-11-23] MEDS: LEVOFLOXACIN 750 MG PREMIX INJ 150 ML IV SCH (21:21)
[2016-11-24] VITALS (8 sets, daily range): BP systolic 97–117; BP diastolic 58–75; PULSE 20–117; RESP 18–52; TEMP 97.9–98.6; O2SAT 94–98
[2016-11-24] MEDS: HYDROmorphone HCL PF 1 MG/ML VIAL IV PUSH PRN ×3 (06:14→17:40)
[2016-11-24] MEDS: PIPERACIL-TAZO 3.375 GM PREMIX 50 ML IV SCH ×2 (06:16→11:55)
[2016-11-24] MEDS: RESP: ALBUTEROL 2.5 MG/IPRATROPIUM 0.5 MG NEB (SCH) NEB ×3 (08:00→19:52)
[2016-11-24] MEDS: PANTOPRAZOLE SOD 40 MG DELAYED RELEASE TAB PO SCH ×2 (08:33→21:18)
[2016-11-24] MEDS: ARIPiprazole 2 MG TAB PO SCH (08:33)
[2016-11-24] MEDS: DULoxetine HCl DR 60 MG CAP PO SCH (08:33)
[2016-11-24] MEDS: SODIUM CHLORIDE 0.9% FLUSH 10 ML FLUSH IVF SCH ×2 (08:35→21:20)
--- NOTE | 2016-11-24 16:58 | HHI.PR ---
Subjective Remarks Pt feeling better. No cough. Objective Vitals Vital Signs Date Time Temp Pulse Resp B/P (MAP) Pulse Ox O2 Delivery O2 Flow Rate FiO2 11/24/16 16:00 98.6 117 20 97/66 (76) 95 11/24/16 12:00 98.0 95 20 117/75 (89) 96 11/24/16 08:00 98 21 11/24/16 08:00 96 Room Air 21 11/24/16 08:00 102 11/24/16 08:00 98.0 20 52 102/65 (77) 97 11/24/16 04:00 Room Air 11/24/16 04:00 98.2 102 18 108/58 (75) 95 11/24/16 00:00 Room Air 11/24/16 00:00 97.9 89 20 114/59 (77) 95 11/23/16 23:58 18 11/23/16 21:30 Room Air 11/23/16 20:15 82 11/23/16 20:00 98.4 90 20 114/64 (81) 94 11/24/16 11/24/16 11/25/16 15:00 23:00 07:00 Intake Total 50 ml Balance 50 ml IV Total 50 ml # Voids 3 Result Diagram: 11/23/16 0539 11/23/16 0539 Imaging Last Impressions Abdomen/Pelvis CT 11/21/16 1806 Signed Impressions: Service Date/Time: October 18:34 - CONCLUSION: 1. Streaky infiltrate of both lung bases, mostly the left lower lobe. 2. Indeterminate cystic structure within the spleen. Ben Connor MD Chest X-Ray 11/21/16 1533 Signed Impressions: Service Date/Time: October 15:45 - CONCLUSION: 1. Chronic appearing interstitial changes. No acute abnormality. Willie Shelley MD Objective Remarks GENERAL: This is a well-nourished, well-developed patient, in no apparent distress. Alert and oriented. Cooperative with exam. CARDIOVASCULAR: Regular rate and rhythm without murmurs, gallops, or rubs. RESPIRATORY: Clear through out GASTROINTESTINAL: Abdomen soft, mildly distended and mild global tenderness to palpation. No hepato-splenomegaly, or palpable masses. No guarding. Bowel sounds slightly hypoactive. MUSCULOSKELETAL: Extremities without clubbing, cyanosis, or edema. No calf tenderness. Patient had tenderness to palpation along the mid to lower spine. NEUROLOGICAL: Awake and alert. No focal deficits noted. Motor and sensory grossly within normal limits. Five out of 5 muscle strength in all muscle groups. Normal speech. A/P Problem List: (1) Sepsis ICD Codes: A41.9 - Sepsis, unspecified organism Status: Acute Plan: Sepsis - due to underlying pneumonia - Continue IV fluids thru tomorrow AM - Zosyn (11/21 - 11/24) - Levaquin (11/21 - present) - blood pressure reading improved from admission - Blood Cx (11/21) --> NGTD - CXR (11/21) --> chronic interstitial changes - CT abd/pelvis (11/21) --> bibasilar infiltrate, left worse than right - repeat CXR 11/25 - abx narrowed to levaquin only - DVT prophylaxis - supportive care - anticipate to home 11/25, if pt remains stable Hypotension- improving Likely associated with sepsis as noted above. Pneumonia Recurring problem. Possibly associated with recurrent aspiration. Patient was hospitalized in July with significant gram-negative hay sepsis requiring intubation and ventilatory support per his report. Acute kidney injury (nontraumatic)- creatinine 2.14 on admission, 1.74 (11/22) Possibly due to hypoperfusion injury. Continue to provide IV fluids. Baseline creatinine generally recheck in AM Ankylosing spondylitis Provide pain medication but we'll be cautious due to low blood pressures. Gastroparesis Continue medication. GI following as outpatient. If the gastroparesis and hiatal hernia are significantly contributing to the recurrent pneumonia, specialist may need to be involved during this hospital course in hopes of providing a more definitive therapy. DVT prophylaxis with Lovenox 30mg SQ daily (2) Hypotension ICD Codes: I95.9 - Hypotension, unspecified Status: Acute Plan: - resolved, see above (3) Pneumonia ICD Codes: J18.9 - Pneumonia, unspecified organism Status: Acute Plan: - see above (4) Acute kidney injury (nontraumatic) ICD Codes: N17.9 - Acute kidney failure, unspecified Status: Acute Plan: - resolved with IV hydration (5) Ankylosing spondylitis ICD Codes: M45.9 - Ankylosing spondylitis of unspecified sites in spine Status: Chronic Plan: see above (6) Gastroparesis ICD Codes: K31.84 - Gastroparesis Status: Chronic Plan: see above (7) GERD (gastroesophageal reflux disease) ICD Codes: K21.9 - Gastro-esophageal reflux disease without esophagitis Plan: - increased protonix to BID - tums prn - pt considering w/u with General Surgery for possible fundoplication Problem Qualifiers (1) Sepsis: Qualified Codes: A41.9 - Sepsis, unspecified organism (2) Hypotension: Qualified Codes: I95.9 - Hypotension, unspecified Som Goldberg DO Nov 24, 2016 16:58
[2016-11-24] MEDS: CALCIUM CARBONATE 500 MG CHEWABLE TAB CHEW PRN (17:45)
[2016-11-24] MEDS: ENOXAPARIN SODIUM 30 MG/0.3 ML SYRINGE SQ SCH (21:18)
[2016-11-25] VITALS: BP 99/69; PULSE 93; RESP 20; TEMP 97.8; O2SAT 94
[2016-11-25] MEDS: HYDROmorphone HCL PF 1 MG/ML VIAL IV PUSH PRN ×3 (00:26→12:55)
[2016-11-25 04:00] VITALS: BP 117/71; PULSE 90; RESP 19; TEMP 97.8; O2SAT 96
[2016-11-25] MEDS: RESP: ALBUTEROL 2.5 MG/IPRATROPIUM 0.5 MG NEB (SCH) NEB ×2 (07:19→12:20)
--- NOTE | 2016-11-25 08:10 | RADRPT ---
EXAM DATE/TIME: 11/25/2016 08:04 [facility] COMPARISON: CHEST PA & LAT, November 21, 2016, 15:45. INDICATIONS : Shortness of breath. MEDICAL HISTORY : Cardiovascular disease. Hypertension. Chronic obstructive pulmonary disease. SURGICAL HISTORY : None. ENCOUNTER: Subsequent ACUITY: 4 - 6 days PAIN SCORE: 0/10 LOCATION: Bilateral chest FINDINGS: PA and lateral views of the chest demonstrate the lungs to be symmetrically aerated without evidence of mass, infiltrate or effusion. The cardiomediastinal contours are unremarkable. Osseous structure s are intact. CONCLUSION: 1. No acute cardiopulmonary disease. Fito Collins MD on November 25, 2016 at 8:08 Board Certified Radiologist. This report was verified electronically.
[2016-11-25 08:46] VITALS: O2SAT 95
[2016-11-25 08:53] VITALS: BP 131/71; PULSE 98; RESP 16; TEMP 98.2; O2SAT 96
[2016-11-25] MEDS: PANTOPRAZOLE SOD 40 MG DELAYED RELEASE TAB PO SCH (08:56)
[2016-11-25] MEDS: SODIUM CHLORIDE 0.9% FLUSH 10 ML FLUSH IVF SCH (08:56)
[2016-11-25] MEDS: ARIPiprazole 2 MG TAB PO SCH (08:56)
[2016-11-25] MEDS: DULoxetine HCl DR 60 MG CAP PO SCH (08:56)
[2016-11-25 10:23] LABS: AUTOMATED NEUTROPHIL # 8.2 TH/MM3 (1.8-7.7); BASOPHIL # 0.1 TH/MM3 (0-0.2); BASOPHIL % 0.8 % (0.0-2.0); EOSINOPHIL # 0.1 TH/MM3 (0-0.4); EOSINOPHIL % 0.8 % (0.0-4.0); HEMATOCRIT 41.4 % (39.0-51.0); HEMO FLAGS DIFF FINAL; LYMPH % 19.2 % (9.0-44.0); MEAN CELL VOLUME 75.4 FL (80.0-100.0); MEAN CORPUSCULAR HEMOGLOBIN 24.1 PG (27.0-34.0); MEAN CORPUSCULAR HGB CONC 31.9 % (32.0-36.0); NEUT % 78.2 % (16.0-70.0); PLATELET COUNT 247 TH/MM3 (150-450); RED BLOOD COUNT 5.49 MIL/MM3 (4.50-5.90); RED CELL DISTRIBUTION WIDTH 19.4 % (11.6-17.2); WHITE BLOOD COUNT 10.5 TH/MM3 (4.0-11.0)
[2016-11-25 10:53] LABS: BICARBONATE 31.4 MEQ/L (21.0-32.0); MAGNESIUM 2.1 MG/DL (1.5-2.5); POTASSIUM 3.5 MEQ/L (3.5-5.1)
[2016-11-25 11:30] VITALS: PULSE 92
[2016-11-25] MEDS: CALCIUM CARBONATE 500 MG CHEWABLE TAB CHEW PRN (11:44)
[2016-11-25] MEDS ORDERED: LEVO750T3 PO (12:43)
[2016-11-25] MEDS ORDERED: PANT40TA3 PO (12:43)
[2016-11-25] MEDS ORDERED: LEVOFLOXACIN 750 MG TAB PO SCH (12:45)
--- NOTE | 2016-11-25 12:46 | HHI.DS ---
Discharge Summary Admission Date Nov 21, 2016 at 20:51 Discharge Date: Nov 25, 2016 Admitting Diagnosis sepsis, hypotension (1) Sepsis ICD Codes: A41.9 - Sepsis, unspecified organism Status: Acute (2) Hypotension ICD Codes: I95.9 - Hypotension, unspecified Status: Acute (3) Pneumonia ICD Codes: J18.9 - Pneumonia, unspecified organism Status: Acute (4) Acute kidney injury (nontraumatic) ICD Codes: N17.9 - Acute kidney failure, unspecified Status: Acute (5) Ankylosing spondylitis ICD Codes: M45.9 - Ankylosing spondylitis of unspecified sites in spine Status: Chronic (6) Gastroparesis ICD Codes: K31.84 - Gastroparesis Status: Chronic (7) GERD (gastroesophageal reflux disease) ICD Codes: K21.9 - Gastro-esophageal reflux disease without esophagitis Consultants none Procedures none Brief History 50-year-old male patient with history of gastroparesis, ankylosing spondylitis and recurrent pneumonia reportedly due to aspiration presents to the emergency department for evaluation of hypotension. Patient went to his general surgeon' s appointment this morning for evaluation of his hiatal hernia and reflux that he would like to get repaired. During the routine vital signs taken at his physician's appointment it was noted that his blood pressure is extremely low in the 60s/40s. This was confirmed on several measurements and patient was symptomatic with orthostatic lightheadedness. Patient was referred to the emergency department for evaluation. Patient has recently been treated for sepsis and pneumonia. When patient was treated for pneumonia he was admitted to a neighboring hospital and intensive care unit on a ventilator in July of this year. Patient states he is treated for hypertension and takes antihypertensives daily. He did take his medications this morning. Patient has noticed that within the last week he has become lightheaded when standing too quickly. Patient states last week he had abdominal pain, nausea and vomiting. Patient is nauseated at this time but denies any vomiting in the last few days. Patient states he intermittently gets cramping in his legs and his abdomen. Patient has COPD. Patient states he has a dry cough that worsens when he is laying down. He has been given 1 L of IV fluids thus far his blood pressure now in the 80s over 60s. He is actually eating in the bed when I come in the room to examine him. He states that he has been increasingly weak over the last few days and has felt tired and lightheaded without much energy. He said a sharp pain in the left lower chest at times says it is usually associated with him trying to take a deep breath. He has had abdominal pain and has been coughing up more phlegm the last few days. He reports he said approximately 10 episodes of pneumonia in the last 15 months which he ascribes to recurrent aspiration. He has been to [facility] for evaluation regarding his gastroparesis and also has seen infectious disease regarding his recurrent pneumonias locally and at tertiary care center. Complicating his case is the fact that he has underlying ankylosing spondylitis as well as Crohn's disease and is on medications that suppress his immune system. CBC/BMP: 11/25/16 1000 11/25/16 1000 Significant Findings Laboratory Tests Test 11/23/16 05:39 11/25/16 10:00 White Blood Count 12.4 TH/MM3 (4.0-11.0) Hemoglobin 10.5 GM/DL (13.0-17.0) Hematocrit 33.9 % (39.0-51.0) Mean Corpuscular Volume 75.4 FL (80.0-100.0) 75.4 FL (80.0-100.0) Mean Corpuscular Hemoglobin 23.4 PG (27.0-34.0) 24.1 PG (27.0-34.0) Mean Corpuscular Hemoglobin Concent 31.0 % (32.0-36.0) 31.9 % (32.0-36.0) Red Cell Distribution Width 19.7 % (11.6-17.2) 19.4 % (11.6-17.2) Neutrophils (%) (Auto) 78.6 % (16.0-70.0) 78.2 % (16.0-70.0) Neutrophils # (Auto) 9.8 TH/MM3 (1.8-7.7) 8.2 TH/MM3 (1.8-7.7) Random Glucose 107 MG/DL (74-106) 124 MG/DL (74-106) Estimat Glomerular Filtration Rate 63 ML/MIN (>89) 68 ML/MIN (>89) Sodium Level 132 MEQ/L (136-145) Chloride Level 91 MEQ/L (98-107) Imaging Last Impressions Chest X-Ray 11/25/16 0800 Signed Impressions: Service Date/Time: Friday, November 25, 2016 08:04 - CONCLUSION: 1. No acute cardiopulmonary disease. Fito Collins MD Abdomen/Pelvis CT 11/21/16 1806 Signed Impressions: Service Date/Time: October 18:34 - CONCLUSION: 1. Streaky infiltrate of both lung bases, mostly the left lower lobe. 2. Indeterminate cystic structure within the spleen. Ben Connor MD PE at Discharge GENERAL: This is a well-nourished, well-developed patient, in no apparent distress. Alert and oriented. Cooperative with exam. CARDIOVASCULAR: Regular rate and rhythm without murmurs, gallops, or rubs. RESPIRATORY: Clear through out GASTROINTESTINAL: Abdomen soft, mildly distended and mild global tenderness to palpation. No hepato-splenomegaly, or palpable masses. No guarding. Bowel sounds slightly hypoactive. MUSCULOSKELETAL: Extremities without clubbing, cyanosis, or edema. No calf tenderness. Patient had tenderness to palpation along the mid to lower spine. NEUROLOGICAL: Awake and alert. No focal deficits noted. Motor and sensory grossly within normal limits. Five out of 5 muscle strength in all muscle groups. Normal speech. Hospital Course Sepsis - due to underlying pneumonia - Continue IV fluids thru tomorrow AM - Zosyn (11/21 - 11/24) - Levaquin IV (11/21 - 11/24), start PO abx 11/25 - blood pressure reading improved from admission - Blood Cx (11/21) --> NGTD - CXR (11/21) --> chronic interstitial changes - CT abd/pelvis (11/21) --> bibasilar infiltrate, left worse than right - repeat CXR 11/25 - abx narrowed to levaquin only - DVT prophylaxis - supportive care Hypotension- improving Likely associated with sepsis as noted above. Hold amlodipine patient to continue to monitor BP at home and follow up with PCP Pneumonia Recurring problem. Possibly associated with recurrent aspiration. Patient was hospitalized in July with significant gram-negative hay sepsis requiring intubation and ventilatory support per his report. Acute kidney injury (nontraumatic)- creatinine 2.14 on admission, 1.74 (11/22) Possibly due to hypoperfusion injury. Continue to provide IV fluids. Baseline creatinine generally recheck in AM Ankylosing spondylitis Provide pain medication but we'll be cautious due to low blood pressures. Gastroparesis Continue medication. GI following as outpatient recommend outpatient F/U Patient also following with General surgery outpatient recommend outpatient f/u DVT prophylaxis with Lovenox 30mg SQ daily while in hospital Pt Condition on Discharge: Stable Discharge Disposition: Discharge Home Discharge Instructions DIET: Follow Instructions for: Heart Healthy Diet Activities you can perform: Regular-No Restrictions Follow up Referrals: Gastroenterology - [address] New PCP Follow-up - [address] Frankel Pulmonology - 2 Weeks with Celestine Suazo MD Surgical - 3-5 Days with Josh Mancia MD New Medications: Levofloxacin (Levofloxacin) 750 Mg Tablet 750 MG PO DAILY for Infection, #7 TAB 0 Refills Pantoprazole (Pantoprazole) 40 Mg Tab 40 MG PO Q12HR for acid reflux, #60 TAB 0 Refills Continued Medications: Alprazolam (Alprazolam) 1 Mg Tab 1 MG PO DAILY PRN for ANXIETY, TAB 0 Refills Amphetamine-Dextroamphetamine (Adderall) 20 Mg Tab 20 MG PO BID for Hyperactivity Control, #60 TAB 0 Refills Avoid late evening doses. Space doses at least 4 to 6 hours if more than once/day dosing. Folic Acid (Folic Acid) 0.8 Mg Tab 1 MG PO DAILY for Nutritional Supplement, TAB 0 Refills Gabapentin (Gabapentin) 100 Mg Cap 100 MG PO TID, #90 CAP 0 Refills Hydrocodone-Acetaminophen (Lortab) 10-325 Mg Tab 1 TAB PO Q6H PRN for PAIN, TAB 0 Refills Meloxicam (Meloxicam) 7.5 Mg Tab 7.5 MG PO BID for Arthritis Pain, TAB 0 Refills Montelukast (Montelukast) 10 Mg Tab 10 MG PO HS, #30 TAB 0 Refills Potassium Chloride ER (Potassium Chloride ER) 10 Meq Tab 10 MEQ PO BID for Electrolyte Replacement, #60 TAB 0 Refills Discontinued Medications: Amlodipine (Amlodipine) 5 Mg Tab 5 MG PO DAILY for Blood Pressure Management, #30 TAB 0 Refills Omeprazole (Omeprazole) 20 Mg Tab 20 MG PO BID, #30 TAB 0 Refills Yumiko Barbosa Nov 25, 2016 12:46 Jhon Rivera MD Nov 25, 2016 13:26
== END 2016-11-25 14:31 | disposition home or self-care (01) | DRG 871 ==
LOC: NEPC 15:14 → NEDA 20:51 → N04B 23:55
PROVIDERS: ADMIT Hospitalist; ATTEND Hospitalist
DX: A41.9 Sepsis, unspecified organism (principal); J69.0 Pneumonitis due to inhalation of food and vomit; N17.9 Acute kidney failure, unspecified; I95.9 Hypotension, unspecified; K50.90 Crohn's disease, unspecified, without complications; K31.84 Gastroparesis; J44.9 Chronic obstructive pulmonary disease, unspecified; M45.9 Ankylosing spondylitis of unspecified sites in spine; K21.9 Gastro-esophageal reflux disease without esophagitis; K44.9 Diaphragmatic hernia without obstruction or gangrene; F32.9 Major depressive disorder, single episode, unspecified; F41.9 Anxiety disorder, unspecified; F90.9 Attention-deficit hyperactivity disorder, unspecified type; Z85.828 Personal history of other malignant neoplasm of skin; Z87.891 Personal history of nicotine dependence; Z79.899 Other long term (current) drug therapy
CPT/HCPCS: 71020; 74176; 80048; 80053; 80076; 82550; 83605; 83690; 83735; 84484; 85025; 87040; 90686; 93005; 94640; 96361; 96365; J1170; J1650; J1956; J2270; J2543; J3480; J7030; J7512; Q2038

== ENCOUNTER 2017-02-04 09:54 | Observation (INO) | payer OTHER ==
[~2017-02-04] VITALS: Ht 172.7 cm; Wt 72.2 kg
[~2017-02-04 09:54] MED LIST: ADDE20 PO; ALPR1TAB3 PO; FOLI800T PO; GABA100C4 PO; HYDR-3535 PO; LEVO750T3 PO; MELO7.5T27 PO; MONT10TA4 PO; PANT40TA3 PO; POTA10TA2 PO
[2017-02-04] MEDS ORDERED: ADDE30XR PO (10:49)
[2017-02-04] MEDS ORDERED: BYST5TAB2 PO (10:59)
[2017-02-04] MEDS ORDERED: METO25TA3 PO (10:59)
[2017-02-04] MEDS ORDERED: METH8TAB3 PO (10:59)
[2017-02-04] MEDS ORDERED: METH25IN13 IM (10:59)
[2017-02-04] MEDS ORDERED: LOSA100T PO (10:59)
[2017-02-04] MEDS ORDERED: CYCL10TA PO (10:59)
[2017-02-04] MEDS ORDERED: METO2.5T PO (10:59)
[2017-02-04] MEDS ORDERED: FURO20TA PO (10:59)
[2017-02-04] MEDS ORDERED: SODIUM CHLORID 0.9% 500 ML IV PRN (11:15)
[2017-02-04] MEDS ORDERED: LACTATED RINGER'S 1000 ML IV PRN (11:15)
[2017-02-04] MEDS ORDERED: ACETAMINOPHEN 1000 MG/100 ML 100 ML IV SCH (11:15)
[2017-02-04] MEDS ORDERED: METOPROLOL TARTRATE 25 MG TAB PO PRN (11:15)
[2017-02-04] MEDS ORDERED: POVIDONE IODINE 5% (ANTISEPSIS KIT) 4 APPLICATIONS EACH NARE PRN (11:15)
[2017-02-04] MEDS ORDERED: CHLORHEXIDINE GLUCONATE 2 % 1 PACK (2 CLOTHS) TOPICAL PRN (11:15)
[2017-02-04] MEDS ORDERED: ceFAZolin 2 GM PREMIX 50 ML IV SCH (11:15)
[2017-02-04] MEDS ORDERED: SODIUM CHLORIDE 0.9% 20 ML VIAL IV ONE (12:00)
[2017-02-04] MEDS ORDERED: ROCURONIUM INJ 50 MG/5 ML SYRINGE IV PUSH ONE (12:00)
[2017-02-04] MEDS ORDERED: SUCCINYLCHOLINE CHLORIDE 100 MG/5 ML SYRINGE IV PUSH ONE (12:00)
[2017-02-04] MEDS ORDERED: PROPOFOL 200 MG/20 ML AMP IV ONE (12:00)
[2017-02-04] MEDS ORDERED: ePHEDrine/NS 25 MG/5 ML SYRINGE IV ONE (12:00)
[2017-02-04] MEDS ORDERED: PHENYLEPHRINE HCL 10 MG/ML VIAL IV ONE (12:00)
[2017-02-04] MEDS ORDERED: DEXAMETHASONE SOD PHOS 4 MG/ML VIAL IV ONE (12:00)
[2017-02-04] MEDS ORDERED: LIDOCAINE HCL 1% PF 5 ML SYRINGE OTHER ONE (12:00)
[2017-02-04] MEDS ORDERED: LACTATED RINGER'S 1000 ML INJ 3,000 ML IV ONE (12:00)
[2017-02-04] MEDS ORDERED: ONDANSETRON HCL 4 MG/2 ML VIAL IV ONE (12:00)
[2017-02-04] MEDS ORDERED: BUPIVACAINE/EPINEPHRINE 0.25% PF 30 ML VIAL ONE (13:36)
[2017-02-04] MEDS ORDERED: ACETAMINOPHEN 1000 MG/100 ML 0 ML IV ONE (13:38)
[2017-02-04] MEDS ORDERED: ACETAMINOPHEN 1000 MG/100 ML 100 ML IV ONE (16:56)
[2017-02-04] MEDS ORDERED: ARTIFICIAL TEARS OPTH OINT 3.5 APPLIC/3.5 GM TUBO ONE (17:02)
[2017-02-04] MEDS ORDERED: HYDROmorphone HCL PF 2 MG/ML VIAL ONE (17:05)
[2017-02-04] MEDS: LACTATED RINGER'S 1000 ML INJ 1,000 ML IV SCH (20:33)
[2017-02-04] MEDS ORDERED: NALOXONE HCL 0.4 MG/ML AMP IV PUSH PRN (20:45)
[2017-02-04] MEDS ORDERED: diphenhydrAMINE HCL 50 MG/ML VIAL IV PUSH PRN (20:45)
[2017-02-04] MEDS ORDERED: SODIUM CHLORIDE 0.9% FLUSH 10 ML FLUSH IV FLUSH PRN (20:45)
[2017-02-04] MEDS ORDERED: ONDANSETRON HCL 4 MG/2 ML VIAL IV PUSH PRN (20:45)
[2017-02-04] MEDS ORDERED: oxyCODONE/ACETAMINOPHEN 5 MG/325 MG TAB PO PRN (20:45)
[2017-02-04] MEDS ORDERED: MORPHINE SULFATE 4 MG/ML INJ IV PUSH PRN (20:45)
[2017-02-04] MEDS ORDERED: Post-op Orders (for Pharmacy) XX ONE (20:45)
--- NOTE | 2017-02-04 20:47 | PD.OP ---
cc: Josh Mancia MD Operative Report Date of Surgery: Feb 04, 2017 Preoperative Diagnosis: (1) Hiatal hernia (2) GERD (gastroesophageal reflux disease) Postoperative Diagnosis: (1) Hiatal hernia (2) GERD (gastroesophageal reflux disease) Procedure: Robot assisted laparoscopic hiatal hernia repair and Varghese fundoplication Anesthesia: TYLER Surgeon: Josh Mancia Equine Intern(s): Leland Smyth CFA Operation and Findings: EBL: 50 cc Operative findings: Moderate-sized hiatal hernia. Large vessel crossing gastrohepatic ligament which was avoided. Uncomplicated Varghese fundoplication. Procedure in detail: The patient was taken to the operating room and placed in supine position. Gen. endotracheal anesthesia was induced and the abdomen was prepped and draped in usual sterile fashion. A surgical timeout was performed to verify correct patient procedure and site. Local anesthetic was injected in skin and subcutaneous tissue in the upper midline 15 cm inferior to the xiphoid and a 12 mm incision made. A 5 mm Optiview trocar was inserted under laparoscopic visualization. The abdomen was insufflated to 15 mmHg with CO2 gas which the patient tolerated well. He was then placed in reverse Trendelenburg position. In the right upper lateral abdomen and a 5 mm port was placed and the dominant flex liver retractor inserted and used to elevate the left lobe of the liver and expose the hiatus. In the right upper abdomen and 8 mm robotic port was placed. The left upper abdomen and 8 mm robotic port was placed. In the left lateral abdomen a 5 mm publisher assistant port was placed. The initial supraumbilical port was changed to a 12 mm port. Three 0 silk sutures and 3 2-0 silk sutures, 2 ray tecs, and a [place] drain was placed into the abdominal cavity. The laparoscopic tower was removed. The da Edgar robot was docked. The surgeon then operated from the robotic console. The Harmonic scalpel was used to divide the gastrohepatic ligament. There was a large vessel transversing through the gastrohepatic ligament to the liver and this was avoided. Dissection was carried out inferior and superior to the ligament. The right nini of the diaphragm was identified and the dissection carried out posteriorly to where the diaphragm fibers cross. The fundus was retracted medially and the left nini the diaphragm identified. The grasper was placed posterior to the stomach from right to left. A [place] drain was encircled around the upper fundus. Dissection was carried out circumferentially reducing a medium-size hiatal hernia from the mediastinum. There was a small entry into the pleura. The patient temporarily had decreased tidal volumes and intrabdominal pressure reduced to 12mmHg briefly. This resolved and pressure was placed again to 15mmHg. The stomach and over 2cm of esophageal easily sat in the abdomen without any tension. Three 0 silk figure of eight sutures were then used to close the moderate sized diaphragmatic defect. Attention was turned to the fundoplication. The short gastric vessels were taken down using the Harmonic scalpel from the upper third of the stomach including posterior branches. Esophageal bougies were placed in succession starting at size 36 up to 54. The 54 bougie was left in place. The double fenestrated grasper was then used to reach posteriorly from right to left under the GE junction and the fundus was grasped. It was pulled medially and the shoestring maneuver used to properly position the fundus on either side of the esophagus without tension. Three 2-0 silk sutures were placed to perform the 360 wrap. The second suture included a bite of esophagus. The wrap was approximately 3 cm. There was good hemostasis in the operative field and the yokasta flex retractor was removed. Trocars were then removed and the abdomen allowed to desufflate. The fascia at the 12mm port site was closed with 0 vicryl suture. Skin was closed with subcuticular 4-0 monocryl and dermabond. The patient tolerated the procedure well and was taken to PACU in stable condition. Josh Mancia MD Feb 04, 2017 20:47
[2017-02-04] MEDS ORDERED: *morphine SULFATE 8 MG/ML PERIprocedure ONLY ONE ×2 (20:48→21:20)
[2017-02-04] MEDS ORDERED: SUGAMMADEX SODIUM 200 MG/2 ML VIAL IV PUSH ONE ×2 (20:53)
[2017-02-04] MEDS ORDERED: *ONDANSETRON 4 MG VIAL PERIprocedural Use ONLY ONE (20:57)
[2017-02-04] MEDS ORDERED: MONTELUKAST SODIUM 10 MG TAB PO SCH (21:00)
[2017-02-04] MEDS: SODIUM CHLORIDE 0.9% FLUSH 10 ML FLUSH IV FLUSH SCH (21:00)
[2017-02-04] MEDS ORDERED: DO NOT ADM ANY ANTICOAGULANT DRUGS PRN (21:15)
--- NOTE | 2017-02-04 21:36 | RADRPT ---
EXAM DATE/TIME: 02/04/2017 21:02 [facility] COMPARISON: No previous studies available for comparison. INDICATIONS : Shortness of breath. MEDICAL HISTORY : Cardiovascular disease. Hypertension. Chronic obstructive pulmonary disease SURGICAL HISTORY : None. ENCOUNTER: Initial ACUITY: 1 day PAIN SCORE: 0/10 LOCATION: Bilateral chest FINDINGS: A single view of the chest demonstrates subsegmental air space disease at the lung bases. No signific ant effusion. No pneumothorax. Cardiomegaly. CONCLUSION: 1. Subsegmental airspace disease at the lung bases. No significant effusion. Jordan Ewing MD on February 04, 2017 at 21:33 Board Certified Radiologist. This report was verified electronically.
[2017-02-04 22:07] VITALS: BP 118/62; PULSE 107; RESP 20; TEMP 97; O2SAT 97
[2017-02-04] MEDS: methylPREDNISolone 4 MG TAB PO SCH (22:57)
[2017-02-04] MEDS: PANTOPRAZOLE SODIUM 40 MG VIAL IV PUSH SCH (22:57)
[2017-02-04] MEDS: METOPROLOL TARTRATE 25 MG TAB PO SCH (22:57)
[2017-02-04] MEDS: oxyCODONE/ACETAMINOPHEN 10 MG/325 MG TAB PO PRN (22:57)
[2017-02-04] MEDS: MELOXICAM 7.5 MG TAB PO SCH (22:57)
[2017-02-05 04:00] VITALS: BP 124/75; PULSE 89; RESP 20; TEMP 97.8; O2SAT 96
[2017-02-05] MEDS: oxyCODONE/ACETAMINOPHEN 10 MG/325 MG TAB PO PRN ×2 (06:41→12:40)
[2017-02-05 08:00] VITALS: BP 118/70; PULSE 101; RESP 18; TEMP 97.4; O2SAT 99
[2017-02-05] MEDS: methylPREDNISolone 4 MG TAB PO SCH (08:58)
[2017-02-05] MEDS: PANTOPRAZOLE SODIUM 40 MG VIAL IV PUSH SCH (08:58)
[2017-02-05] MEDS: MELOXICAM 7.5 MG TAB PO SCH (08:58)
[2017-02-05] MEDS: METOPROLOL TARTRATE 25 MG TAB PO SCH (08:59)
[2017-02-05] MEDS: SODIUM CHLORIDE 0.9% FLUSH 10 ML FLUSH IV FLUSH SCH (08:59)
[2017-02-05] MEDS ORDERED: DEXTROAMPHETAMINE/AMPHETAMINE XR 30 MG CAP PO SCH (09:00)
[2017-02-05] MEDS ORDERED: GABAPENTIN 100 MG CAP PO SCH (09:00)
[2017-02-05] MEDS ORDERED: NEBIVOLOL 5 MG TAB PO SCH (09:00)
[2017-02-05] MEDS ORDERED: LOSARTAN 50 MG TAB PO SCH (09:00)
[2017-02-05] MEDS ORDERED: METOLAZONE 2.5 MG TAB PO SCH (09:00)
[2017-02-05] MEDS: LACTATED RINGER'S 1000 ML INJ 1,000 ML IV SCH (09:03)
[2017-02-05 09:05] VITALS: O2SAT 98
[2017-02-05] MEDS ORDERED: OXYC1TAB63 PO (11:54)
--- NOTE | 2017-02-05 11:58 | HHI.PR ---
Subjective Subjective Notes He feels very well and complains only of mild pain. He is up walking around the room. Tolerating clears without any nausea. Objective Vitals/I&O Vital Signs Date Time Temp Pulse Resp B/P (MAP) Pulse Ox O2 Delivery O2 Flow Rate FiO2 02/05/17 09:05 98 Nasal Cannula 2.00 02/05/17 08:00 97.4 101 18 118/70 (86) Narrative Exam NAD Abd: mild distention, inc c/d/i A/P Assessment and Plan 51 yo M POD 1 s/p robot assisted hiatal hernia repair and ricardo fundoplication. Doing well post op. Stable condition. D/c home. Full liquids for two weeks. F/ u with me in two weeks. Cont home meds and rx for percocet. Activity- no heavy lifting. Josh Mancia MD Feb 05, 2017 11:58
[2017-02-05 12:00] VITALS: BP 115/64; PULSE 85; RESP 19; TEMP 96.9; O2SAT 75
[2017-02-05] MEDS ORDERED: ENOXAPARIN SODIUM 40 MG/0.4 ML SYRINGE SQ SCH (19:30)
== END 2017-02-05 13:39 | disposition home or self-care (01) ==
LOC: HSDI 09:54 → INTOOBSV 09:54 → N07B 22:03
PROVIDERS: ADMIT Surgery; ATTEND Surgery
DX: K44.9 Diaphragmatic hernia without obstruction or gangrene (principal); K21.9 Gastro-esophageal reflux disease without esophagitis; J44.9 Chronic obstructive pulmonary disease, unspecified; Z85.828 Personal history of other malignant neoplasm of skin
CPT/HCPCS: 00790; 43281; 71010; 94150; 96361; 96374; 96376; C9113; G0378; J0131; J0330; J0690; J1100; J2270; J2370; J2405; J3010; J7120; J7509; J1170